=== PATIENT | female | born 1970 | race African-American/Black ===

== ENCOUNTER 2017-01-02 21:48 | Emergency (ER) | payer OTHER | END 2017-01-02 22:35 | disposition home or self-care (01) | LOC: ERS 21:48 | DX: L03.116 Cellulitis of left lower limb (principal); K21.9 Gastro-esophageal reflux disease without esophagitis; F31.9 Bipolar disorder, unspecified; F20.9 Schizophrenia, unspecified; F41.9 Anxiety disorder, unspecified; F17.210 Nicotine dependence, cigarettes, uncomplicated | CPT/HCPCS: 99283 ==

== ENCOUNTER 2017-01-08 10:57 | Emergency (ER) | payer OTHER | END 2017-01-08 11:39 | disposition home or self-care (01) | LOC: ERS 10:57 | DX: L03.116 Cellulitis of left lower limb (principal); K21.9 Gastro-esophageal reflux disease without esophagitis; F31.9 Bipolar disorder, unspecified; F20.9 Schizophrenia, unspecified; F41.9 Anxiety disorder, unspecified; F17.210 Nicotine dependence, cigarettes, uncomplicated | CPT/HCPCS: 99283 ==

== ENCOUNTER 2017-06-17 12:19 | Emergency (ER) | payer OTHER ==
[2017-06-17 13:10] LABS: Hemoglobin 14.7 g/dL (12.0-16.0); Mean Corpuscular Hemoglobin 33.3 pg (27.0-31.0); Mean Corpuscular Volume 98.1 fl (81.0-99.0); Mean Platelet Volume 7.9 fL (7.4-10.4); Platelet Count 234 thou/uL (130-400); RBC Distribution Width 11.8 % (11.5-14.5); White Blood Cell (WBC) Count 6.3 thou/uL (4.8-10.8)
[2017-06-17 13:18] LABS: ALT (SGPT) 15 U/L (8-55); AST (SGOT) 20 U/L (5-34); Albumin 4.3 g/dL (3.5-5.0); Alkaline Phosphatase 76 U/L (40-150); Anion Gap 12 mmol/L (10-20); BUN (Urea Nitrogen) 7 mg/dL (7.0-18.7); Bilirubin, Total 0.4 mg/dL (0.2-1.2); Calc. Creatinine Clearance 0 mL/min (70-130); Calcium 9.7 mg/dL (7.8-10.44); Carbon Dioxide 24 mmol/L (22-29); Chloride 106 mmol/L (98-107); Estimated GFR-MDRD 85; Globulin 3.3 g/dL (2.4-3.5); Glucose 69 mg/dL (70-105); Lipase 22 U/L (8-78); Potassium 3.5 mmol/L (3.5-5.1); Protein, Total 7.6 g/dL (6.0-8.3); Sodium 138 mmol/L (136-145)
[2017-06-17 13:24] LABS: Eosinophils 7 % (0-10); Lymphocytes 60 % (21-51); MDiff Complete? YES; Monocytes 1 % (0-10); Neutrophil 29 % (42-75); RBC Morphology Normal; Reactive Lymphocytes 2 % (0-10)
[2017-06-17] MEDS ORDERED: Morphine 4 MG/ML VIAL ONE (13:58)
[2017-06-17 14:31] LABS: Bilirubin Negative (Negative); Blood, Urine Negative (Negative); Clarity CLEAR (Clear); Glucose, Urine (Dipstick) Negative (Negative); Leukocyte Negative (Negative); Nitrite Negative (Negative); Protein, Urine (Dipstick) Negative (Neg-Trace); Specific Gravity, Urine 1.007 (1.002-1.036); Urobilinogen 0.2 mg/dL (0.2-1.0)
[2017-06-17 14:32] LABS: Pregnancy Test - Urine (BHCG) Negative (Negative); Pregu Control Background? CLEAR/WHITE (CLR/WHITE); Pregu Control Bar Appear? YES (CONTROL BAR); Specific Gravity 1.007 (1.002-1.036)
--- NOTE | 2017-06-17 14:33 | ULT ---
RIGHT UPPER QUADRANT SONOGRAM: HISTORY: Right upper quadrant pain. FINDINGS: The gallbladder has a normal appearance without evidence of stones. The common duct is 0.3 cm. The liver is unremarkable without focal mass or intrahepatic biliary dilatation. No free fluid. IMPRESSION: No evidence of gallstones or biliary obstruction. POS: [facility]
[2017-06-17] MEDS ORDERED: Ketorolac Tromethamine 30 MG/ML VIAL ONE (15:26)
== END 2017-06-17 16:21 | disposition home or self-care (01) ==
LOC: ERS 12:19
DX: R10.13 Epigastric pain (principal); J45.909 Unspecified asthma, uncomplicated; K21.9 Gastro-esophageal reflux disease without esophagitis; F31.9 Bipolar disorder, unspecified; F20.9 Schizophrenia, unspecified; F41.9 Anxiety disorder, unspecified; F17.210 Nicotine dependence, cigarettes, uncomplicated; Z79.899 Other long term (current) drug therapy
CPT/HCPCS: 36415; 76705; 80053; 81003; 81025; 83690; 85025; 96361; 96374; 96375; J1885; J2270

== ENCOUNTER 2017-10-02 08:52 | Emergency (ER) | payer OTHER ==
[2017-10-02 09:22] LABS: Bilirubin Negative (Negative); Blood, Urine Trace (Negative); Clarity CLEAR (Clear); Glucose, Urine (Dipstick) Negative (Negative); Leukocyte Negative (Negative); Nitrite Negative (Negative); Protein, Urine (Dipstick) Negative (Neg-Trace); Specific Gravity, Urine 1.024 (1.002-1.036); pH, Urine 5.5 (5.0-9.0)
[2017-10-02 09:25] LABS: Bacteria/HPF None Seen HPF (None Seen); Hyaline Casts/LPF 0-3 HYALINE CAST LPF (0-3 Hyaline); Pathc Cast-AUWi Flag 0.87 (0-2.49); Squamous Epithelial 0-3 HPF (0-3); WBC/HPF 0-3 HPF (0-3)
[2017-10-02 10:54] LABS: Pregnancy Test - Urine (BHCG) Negative (Negative); Pregu Control Background? CLEAR/WHITE (CLR/WHITE); Pregu Control Bar Appear? YES (CONTROL BAR); Specific Gravity 1.024 (1.002-1.036)
[2017-10-02] MEDS ORDERED: cefTRIAXone\\ROCEPHIN 250 MG VIAL ONE (10:58)
[2017-10-02] MEDS ORDERED: Azithromycin 250 MG TAB ONE (10:58)
[2017-10-02] MEDS ORDERED: Lidocaine 1% PF 5 ML VIAL ONE (10:58)
[2017-10-04 19:59] LABS: Chlamydia by PCR Not Detected (NotDetected); GC by PCR Not Detected (NotDetected)
== END 2017-10-02 11:32 | disposition home or self-care (01) ==
LOC: ERS 08:52
DX: B37.3 Candidiasis of vulva and vagina (principal); A59.9 Trichomoniasis, unspecified; Z72.51 High risk heterosexual behavior; J45.909 Unspecified asthma, uncomplicated; K21.9 Gastro-esophageal reflux disease without esophagitis; F31.9 Bipolar disorder, unspecified; F20.9 Schizophrenia, unspecified; F41.9 Anxiety disorder, unspecified; F17.210 Nicotine dependence, cigarettes, uncomplicated
CPT/HCPCS: 81003; 81015; 81025; 87480; 87491; 87510; 87591; 87660; 96372; J0696; J2001

== ENCOUNTER 2017-11-05 20:18 | Emergency (ER) | payer OTHER ==
[2017-11-05] MEDS ORDERED: predniSONE 20 MG TAB ONE (21:08)
== END 2017-11-05 21:11 | disposition home or self-care (01) ==
LOC: ERS 20:18
DX: L29.9 Pruritus, unspecified (principal); T45.2X5A Adverse effect of vitamins, initial encounter; J45.909 Unspecified asthma, uncomplicated; K21.9 Gastro-esophageal reflux disease without esophagitis; F31.9 Bipolar disorder, unspecified; F20.9 Schizophrenia, unspecified; F17.210 Nicotine dependence, cigarettes, uncomplicated; F41.9 Anxiety disorder, unspecified; Z71.6 Tobacco abuse counseling
CPT/HCPCS: 99406; J7506

== ENCOUNTER 2017-11-23 06:27 | Emergency (ER) | payer OTHER ==
[2017-11-23 08:30] LABS: Bilirubin Negative (Negative); Blood, Urine Negative (Negative); Clarity CLEAR (Clear); Glucose, Urine (Dipstick) Negative (Negative); Leukocyte Negative (Negative); Nitrite Negative (Negative); Protein, Urine (Dipstick) Negative (Neg-Trace); Specific Gravity, Urine 1.007 (1.002-1.036); Urobilinogen 0.2 mg/dL (0.2-1.0)
[2017-11-23 08:35] LABS: #Basophils 0.1 thou/uL (0.0-0.2); #Eosinphils 0.2 thou/uL (0.0-0.7); #Lymphocytes 2.1 thou/uL (1.20-3.40); #Monocytes 0.4 thou/uL (0.11-0.59); #Neutrophils 2.4 thou/uL (1.40-6.50); %Basophils 1.9 % (0.0-1.0); %Eosinophils 3.2 % (0.0-10.0); %Lymphocytes 40.3 % (21.0-51.0); %Monocytes 7.7 % (0.0-10.0); Hemoglobin 14.1 g/dL (12.0-16.0); Mean Platelet Volume 8.4 fL (7.4-10.4); Platelet Count 203 thou/uL (130-400); RBC Distribution Width 12.6 % (11.5-14.5); Red Blood Cell (RBC) Count 4.54 mill/uL (4.20-5.40); White Blood Cell (WBC) Count 5.2 thou/uL (4.8-10.8)
[2017-11-23 08:54] LABS: ALT (SGPT) 14 U/L (8-55); AST (SGOT) 21 U/L (5-34); Albumin 4.1 g/dL (3.5-5.0); Alkaline Phosphatase 66 U/L (40-150); Anion Gap 14 mmol/L (10-20); BUN (Urea Nitrogen) 12 mg/dL (7.0-18.7); Bilirubin, Total 0.5 mg/dL (0.2-1.2); Calc. Creatinine Clearance 0 mL/min (70-130); Calcium 9.9 mg/dL (7.8-10.44); Carbon Dioxide 19 mmol/L (22-29); Chloride 107 mmol/L (98-107); Estimated GFR-MDRD 80; Globulin 3.5 g/dL (2.4-3.5); Glucose 64 mg/dL (70-105); Potassium 3.7 mmol/L (3.5-5.1); Protein, Total 7.6 g/dL (6.0-8.3); Sodium 136 mmol/L (136-145)
[2017-11-23 08:58] LABS: CKMB 2.2 ng/mL (0-6.6)
[2017-11-23 09:07] LABS: Troponin I Less than 0.010 ng/mL (< 0.028)
== END 2017-11-23 09:45 | disposition home or self-care (01) ==
LOC: ERS 06:27
DX: R07.9 Chest pain, unspecified (principal); F41.9 Anxiety disorder, unspecified; F19.10 Other psychoactive substance abuse, uncomplicated; F17.210 Nicotine dependence, cigarettes, uncomplicated
CPT/HCPCS: 36415; 80053; 81003; 82553; 84484; 85025; 85379; 93005

== ENCOUNTER 2018-01-09 04:13 | Emergency (ER) | payer OTHER | END 2018-01-09 06:17 | disposition home or self-care (01) | LOC: ERS 04:13 | DX: L03.115 Cellulitis of right lower limb (principal); J40 Bronchitis, not specified as acute or chronic; F17.210 Nicotine dependence, cigarettes, uncomplicated | CPT/HCPCS: 99283 ==

== ENCOUNTER 2018-11-09 08:11 | Emergency (ER) | payer OTHER | END 2018-11-09 09:27 | disposition home or self-care (01) | LOC: ERS 08:11 | DX: K08.89 Other specified disorders of teeth and supporting structures (principal); F31.9 Bipolar disorder, unspecified; F20.9 Schizophrenia, unspecified; F17.210 Nicotine dependence, cigarettes, uncomplicated; J45.909 Unspecified asthma, uncomplicated; K21.9 Gastro-esophageal reflux disease without esophagitis; F50.9 Eating disorder, unspecified | CPT/HCPCS: 99281 ==

== ENCOUNTER 2021-08-06 07:07 | Emergency (ER) | payer OTHER | END 2021-08-06 08:02 | disposition left against medical advice (07) | LOC: ERS 07:07 | DX: Z53.21 Procedure and treatment not carried out due to patient leaving prior to being seen by health care provider (principal) ==

== ENCOUNTER 2022-05-04 07:41 | Emergency (ER) | payer MEDICAID, OTHER ==
[2022-05-04] MEDS ORDERED: Acetaminophen 500 MG TAB ONE (08:08)
== END 2022-05-04 08:39 | disposition home or self-care (01) ==
LOC: ERS 07:41
DX: S93.431A Sprain of tibiofibular ligament of right ankle, initial encounter (principal); S90.02XA Contusion of left ankle, initial encounter; W19.XXXA Unspecified fall, initial encounter

== ENCOUNTER 2023-01-04 13:24 | Emergency (ER) | payer OTHER ==
[2023-01-04] MEDS ORDERED: Dexamethasone 10 MG/ML VIAL ONE (14:16)
== END 2023-01-04 14:44 | disposition home or self-care (01) ==
LOC: ERS 13:24
DX: J01.90 Acute sinusitis, unspecified (principal); H60.91 Unspecified otitis externa, right ear; R11.2 Nausea with vomiting, unspecified
CPT/HCPCS: 96372; 99283; J1100

== ENCOUNTER 2023-04-10 17:50 | Emergency (ER) | payer OTHER ==
[2023-04-10] MEDS ORDERED: Ondansetron ODT 4 MG TAB ONE (18:07)
[2023-04-10] MEDS ORDERED: Acetaminophen 500 MG TAB ONE (18:07)
[2023-04-10 18:47] LABS: SARS-CoV-2 NAA Rapid Test Not Detected (NotDetected)
== END 2023-04-10 18:47 | disposition home or self-care (01) ==
LOC: ERS 17:50
DX: J02.9 Acute pharyngitis, unspecified (principal); R05.9 Cough, unspecified; R11.2 Nausea with vomiting, unspecified; F17.210 Nicotine dependence, cigarettes, uncomplicated
CPT/HCPCS: 71045; 87081; 87430; Q0162

== ENCOUNTER 2023-08-16 08:43 | Emergency (ER) | payer OTHER ==
[2023-08-16] MEDS ORDERED: Fluorescein Opthalmic Strip ONE (09:22)
[2023-08-16] MEDS ORDERED: Proparacaine 0.5% Opth 15 ML BOT ONE (09:22)
== END 2023-08-16 09:58 | disposition home or self-care (01) ==
LOC: ERS 08:43
DX: H57.89 Other specified disorders of eye and adnexa (principal); F17.210 Nicotine dependence, cigarettes, uncomplicated; Y77.11 Contact lens associated with adverse incidents
CPT/HCPCS: 99283

== ENCOUNTER 2024-02-18 23:49 | Emergency (ER) | payer OTHER ==
[2024-02-19] MEDS ORDERED: Famotidine/PF 20 mg/2ml Vial ONE (00:10)
[2024-02-19] MEDS ORDERED: Pantoprazole 40 MG VIAL ONE (00:10)
[2024-02-19] MEDS ORDERED: Mag-Al 1200 mg/1200 mg/30 ML UDCUP ONE (00:10)
[2024-02-19 00:45] LABS: #Basophils 0.05 10x3/uL (0.0-0.2); %Basophils 0.7 % (0.0-1.0); %Eosinophils 4.1 % (0.0-10.0); %Lymphocytes 44.5 % (21.0-51.0); %Monocytes 9.4 % (0.0-10.0); Hematocrit 40.2 % (36.0-47.0); Hemoglobin 13.8 g/dL (12.0-16.0); Mean Corpuscular HGB CONC 34.3 g/dL (32.0-36.0); Mean Corpuscular Hemoglobin 30.7 pg (27.0-31.0); Mean Corpuscular Volume 89.5 fL (78.0-98.0); Mean Platelet Volume 11.3 fL (7.4-10.4); Platelet Count 242 10x3/uL (130-400); RBC Distribution Width 14.1 % (11.5-14.5); Red Blood Cell (RBC) Count 4.49 mill/uL (4.20-5.40)
[2024-02-19 01:04] LABS: BHCG - Serum Negative (NEGATIVE); Pregs Control Background? CLEAR/WHITE (CLR/WHITE); Pregs Control Bar Appear? YES (CONTROL BAR); Troponin I Less than 0.010 ng/mL (< 0.028)
[2024-02-19 01:58] LABS: Bacteria/HPF 3+ HPF (None Seen); Bilirubin Negative (Negative); Blood, Urine 1+ (Negative); CAUTI Indications for Culture Dysuria,urgency,freq; Clarity Clear (Clear); Glucose, Urine (Dipstick) Normal (Negative); Ketone, Urine Negative (Negative); Leukocyte 75 Leu/uL (Negative); Nitrite 2+ (Negative); Protein, Urine (Dipstick) Negative (Neg-Trace); RBC/HPF 0-3 HPF (0-3); Specific Gravity, Urine 1.022 (1.002-1.036); Squamous Epithelial 0-3 HPF (0-3); Urobilinogen Normal mg/dL (Less than 2); pH, Urine 5.5 (5.0-9.0)
[2024-02-19 02:00] LABS: Urine Culture Reflex No No
== END 2024-02-19 02:46 | disposition left against medical advice (07) ==
LOC: ERS 23:49
DX: R10.13 Epigastric pain (principal); F17.210 Nicotine dependence, cigarettes, uncomplicated; Z53.8 Procedure and treatment not carried out for other reasons
CPT/HCPCS: 36415; 81001; 84484; 84703; 85025; 93005; 96374; 96375; J2470; J3490

== ENCOUNTER 2024-10-26 09:48 | Outpatient (CLI) | payer OTHER | END 2024-10-26 09:49 | disposition home or self-care (01) | LOC: BICMAMMO 09:48 | PROVIDERS: ATTEND Nurse Practitioner Family | DX: Z12.31 Encounter for screening mammogram for malignant neoplasm of breast (principal); N64.89 Other specified disorders of breast | CPT/HCPCS: 77067 ==